=== PATIENT | male | born 2000 | race Two or more races ===

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

== ENCOUNTER 2024-08-28 02:00 | Emergency (ER) | payer MEDICAID ==
[~2024-08-28] VITALS: Ht 177.8 cm; Wt 72.6 kg
[~2024-08-28 02:00] MED LIST: AMOX500T2 PO; IBUP-1955 PO
[2024-08-28 02:08] VITALS: BP 137/70; TEMP 98.2; O2SAT 99
[2024-08-28] MEDS ORDERED: IBUPROFEN 600 MG TABLET ONE (02:27)
[2024-08-28] MEDS: IBUPROFEN 600 MG TABLET PO ONE (02:27)
[2024-08-28] MEDS ORDERED: IBUP-1490 PO (02:52)
[2024-08-28] MEDS ORDERED: HYDROCODONE/APAP 5/325MG TABLET ONE (03:00)
[2024-08-28] MEDS: HYDROCODONE/APAP 5/325MG TABLET PO ONE (03:01)
== END 2024-08-28 03:10 | disposition home or self-care (01) ==
LOC: ER 02:04
DX: S62.666A Nondisplaced fracture of distal phalanx of right little finger, initial encounter for closed fracture (principal); G89.29 Other chronic pain; Z79.899 Other long term (current) drug therapy; W18.39XA Other fall on same level, initial encounter; Y93.89 Activity, other specified; Y92.89 Other specified places as the place of occurrence of the external cause; Y99.8 Other external cause status
CPT/HCPCS: 73140-TC

== ENCOUNTER 2024-11-27 20:03 | Emergency (ER) | payer MEDICAID ==
[~2024-11-27 20:03] MED LIST changes: +IBUP-1490 PO
== END 2024-11-27 21:07 | disposition left against medical advice (07) ==
LOC: ER 20:06
DX: R51.9 Headache, unspecified (principal); M79.10 Myalgia, unspecified site; Z53.21 Procedure and treatment not carried out due to patient leaving prior to being seen by health care provider